=== PATIENT | female | born 1955 | race Caucasian/White ===

== ENCOUNTER → 2023-07-19 15:44 | Outpatient (REF) | payer BC, SELFPAY | LOC: WDC 15:44 | PROVIDERS: ATTENDING PHYSICIAN Physician Assistant Medical | DX: Z12.31 Encounter for screening mammogram for malignant neoplasm of breast (principal) | CPT/HCPCS: 77063; 77067 ==

== ENCOUNTER → 2023-08-10 07:59 | Outpatient (REF) | payer BC, SELFPAY | LOC: WDC 07:59 | PROVIDERS: ATTENDING PHYSICIAN Physician Assistant Medical | DX: R92.2 Inconclusive mammogram (principal) | CPT/HCPCS: 76641 ==

== ENCOUNTER 2024-02-10 13:45 | Emergency (ER) | payer BC, SELFPAY ==
--- NOTE | 2024-02-10 13:54 | ED.GENMED ---
ED Provider Triage
<LAZARO Manning - Last Filed: 02/10/24 14:03>
-
Patient seen by provider in Triage?: Seen in Triage
Attestation: A medical screening examination has been initiated by a qualified medical provider. Based on the assessment performed at this time, it has been determined that an emergent medical condition may exist and the patient has been informed
that further medical evaluation and possible additional diagnostic testing may be needed.
HPI:
68 yr old female present to the ED with c/o of left arm pain for past 6 wks. No injury, pain is constant . Denies any chest pain. denies any trauma/denies neck pain . Saw pcp 2 wks ago has script for MRI neck /lower back however pain has
increased. Pt reports her pcp also wanted her to come to the ED to rule out cardiac cause with left arm pain.
Pt has been taking Alleve without relief.
GENERAL: Alert , in no apparent distress
EYE: No visual abnormalities.
NECK: Trachea midline
ENT: No visible abnormalities.
LUNGS: No acute respiratory distress
NEUROLOGICAL: Alert and oriented
SKIN: Skin intact. No visible changes.
MUSCULOSKELETAL: Moving extremities normally
PSYCH: Normal and appropriate interaction.
This is a medical evaluation conducted in person to initiate diagnostic evaluation and provide initial therapeutics. Please see further documentation by the treating clinician.
History of Present Illness
<LAZARO Manning - Last Filed: 02/10/24 14:03>
General
Chief Complaint: Musculo-Skeletal Complaint
Time Seen by Provider: 02/10/24 14:59
<Esther Robert PA-C - Last Filed: 02/10/24 20:56>
General
Source: patient
History of Present Illness
History of Present Illness:
68yoF with a history of osteoporosis and Lyme disease in 2011 presenting with her for evaluation of multiple complaints. Patient reports left arm discomfort which has been constant for the past 6 weeks. The pain feels like she has a band
squeezing the arm. She also reports lower back pain which radiates down into the bilateral buttocks and posterior legs. She is also experiencing tingling in her bilateral hands and feet. She has had similar symptoms over the past several years
since having Lyme disease in 2011. The symptoms typically last several months before resolving. Patient was previously on daily low-dose naltrexone which was prescribed by her top printing press operator for the symptoms which she is no longer taking. Patient
was seen by her PCP earlier this month for the symptoms. She was told to go to the ED at that time for a cardiac evaluation but did not want to come initially. She was unable to sleep last night due to her pain so she decided to come to the ED
today for evaluation. She has an MRI of her cervical and lumbar spine scheduled for next month. She denies any fevers, weight loss, saddle anesthesia, incontinence, rashes.
Past History
<LAZARO Manning - Last Filed: 02/10/24 14:03>
Past History
ED Past Medical History: Hypothyroidism and Other (lyme)
ED Past Surgical History: None and Orthopedic
Social History
Tobacco: Non-smoker
Alcohol: Other
Personal:
Living: with family
Employment: Employed
Family History
Family History: Other
Phy Exam
<Esther Robert PA-C - Last Filed: 02/10/24 20:56>
General Physical Exam
General Presentation: well appearing and no apparent distress
General age: appears stated age
General Skin: warm and dry
General Habitus: normal
General Mental: alert
General Hydration: appears well hydrated
ENT Exam
ENT Exam: normocephalic
Cardiovascular Exam
Cardiovascular Exam: regular rate/rhythm, no murmur and normal peripheral pulses (2+ radial pulses bilaterally)
Pulmonary Exam
Pulmonary Exam: lungs clear, no respiratory distress, no rales, no crackles and no wheezing
S[place] Coma Scale
Eye Opening: Spontaneous
Verbal Response: Oriented
Motor Response: Obeys Commands
GCS Total Score: 15
Musculoskeletal Exam
Musculoskeletal Exam: other (+Tenderness in bilateral paraspinal lumbar region. No skin changes. )
Skin Exam
Skin Exam: normal color and warm/dry
Psychiatric Exam
Psychiatric Exam: normal mood/affect
Course
<LAZARO Manning - Last Filed: 02/10/24 14:03>
Orders/Labs/Results
Orders:
Orders
02/10/24 13:47
Electrocardiogram (*1) Urgent
Reason for Study: Other
Other Reason for Exam: arm pain
02/10/24 13:48
EKG- Treatment ONCE
02/10/24 14:06
Complete Blood Count/With Diff Urgent
Comprehensive Metabolic Panel Urgent
Troponin I Urgent
02/10/24 16:09
Lyme Progressive Urgent
Abnormal Lab Results
02/10/24
14:06
MCH 33.7 H pg
(27.0-31.0)
BUN 20 H mg/dl
(7-17)
Glucose 113 H mg/dl
(70-99)
AST 46 H U/L
(14-36)
ALT 43 H U/L
(0-35)
02/10/24 14:06
02/10/24 14:06
Vital Signs
Initial and Last Documented VS:
Initial Vital Signs
Temp Pulse Resp BP Pulse Ox
98.7 F 89 16 159/94 98
02/10/24 13:57 02/10/24 13:57 02/10/24 13:57 02/10/24 13:57 02/10/24 13:57
Last Documented Vital Signs
Temp Pulse Resp BP Pulse Ox
98.7 F 70 18 132/79 98
02/10/24 13:57 02/10/24 16:38 02/10/24 16:38 02/10/24 16:38 02/10/24 16:38
<Esther Robert PA-C - Last Filed: 02/10/24 20:56>
Orders/Labs/Results
Orders:
Orders
02/10/24 13:47
Electrocardiogram (*1) Urgent
Reason for Study: Other
Other Reason for Exam: arm pain
02/10/24 13:48
EKG- Treatment ONCE
02/10/24 14:06
Complete Blood Count/With Diff Urgent
Comprehensive Metabolic Panel Urgent
Troponin I Urgent
02/10/24 16:09
Lyme Progressive Urgent
Abnormal Lab Results
02/10/24
14:06
MCH 33.7 H pg
(27.0-31.0)
BUN 20 H mg/dl
(7-17)
Glucose 113 H mg/dl
(70-99)
AST 46 H U/L
(14-36)
ALT 43 H U/L
(0-35)
02/10/24 14:06
02/10/24 14:06
Vital Signs
Initial and Last Documented VS:
Initial Vital Signs
Temp Pulse Resp BP Pulse Ox
98.7 F 89 16 159/94 98
02/10/24 13:57 02/10/24 13:57 02/10/24 13:57 02/10/24 13:57 02/10/24 13:57
Last Documented Vital Signs
Temp Pulse Resp BP Pulse Ox
98.7 F 70 18 132/79 98
02/10/24 13:57 02/10/24 16:38 02/10/24 16:38 02/10/24 16:38 02/10/24 16:38
<Esther Robert PA-C - Last Filed: 02/10/24 20:56>
MDM/Problems Addressed
Differential Diagnosis Includes:
68yoF here with L arm pain x 6 weeks. Also having lower back pain radiating down posterior buttocks/legs x several weeks. Hx of similar symptoms in the past which were attributed to Lyme disease. Hx of Lyme disease in 2012. Has an MRI cervical and
lumbar spine scheduled for next month. No red flags in history including no fevers, saddle anesthesia, incontinence. VSS. She is well appearing in no distress. Exam is reassuring. Differential diagnosis includes but is not limited to: sciatica, DDD,
Lyme disease, doubt cardiac symptoms
Labs and EKG obtained in triage. Troponin WNL and EKG shows NSR without ischemic changes. Offered x-rays of lumbar spine while in the ED although overall low suspicion of fracture. Patient declines imaging at this time. She is requesting repeat Lyme
testing which was ordered. Will trial course of prednisone. She was advised to f/u with her PCP and top printing press operator. ED return precautions discussed. She was discharged in stable condition.
<Esther Robert PA-C - Last Filed: 02/10/24 20:56>
*Critical Care Note
Total Time (30-74mins, 75-104mins- exclusive of procedures): Not Applicable
ED Attending Note
<LAZARO Manning - Last Filed: 02/10/24 14:03>
-
Portions of this chart may have been created with voice recognition software.� Occasional wrong word or��sound alike� substitutions may have occurred due to the inherent limitations of voice recognition software.
Discharge Plan
Departure
Patient Disposition: Home (Routine Discharge)
Date of Disposition: 02/10/24
Time of Disposition: 15:56
Patient with high blood pressure during this ER visit?: Yes
Discharge Problem:
Left arm pain, Low back pain
Instructions: Back Pain
Prescriptions:
New
prednisone 50 mg tablet
50 mg PO DAILY Qty: 5 0RF
Referrals:
Chon Stearns, [Family Provider] -
Activity Restrictions/Additional Instructions:
Take Aleve twice a day as needed. Take prednisone as prescribed.
Please follow-up with your family doctor and top printing press operator. Return to the ER with any new or worsening symptoms.
Interventions
Interventions:
*Risk Screen - Suicide Last Done: 02/10/24 13:57
*General Assessment Last Done: 02/10/24 16:37
*Neglect/Abuse Screening Last Done: 02/10/24 13:57
*ED COVID-19 Vaccine History Last Done: 02/10/24 16:37
*Nursing Disposition Last Done: 02/10/24 16:38
ED-Musculoskeletal Assessment Last Done: 02/10/24 14:57
Discharge Date and Time
Discharge Date/Time: 02/10/24 16:39
Print Language: ANGOLAN
[2024-02-10 13:57] VITALS: BP 159/94
[2024-02-10 14:21] LABS: % Basophils 0.5 % (0-2); % Eosinophils 0.9 % (0-6); % Neutrophils 62.6 % (42.2-75.2); Absolute Eosinophils 0.1 10^3/uL (0-0.7); Absolute Lymphocytes 1.7 10^3/uL (1.2-3.4); Absolute Monocytes 0.4 10^3/uL (0.1-0.6); Absolute Neutrophils 3.6 10^3/uL (1.4-6.5); Hematocrit 40.1 % (37.0-47.0); Hemoglobin 14.5 g/dL (12.0-16.0); Mean Corp Hgb Conc. 36.2 g/dL (33.0-37.0); Mean Corpuscular Hgb 33.7 pg (27.0-31.0); Mean Corpuscular Volume 93.3 fL (81.0-99.0); Mean Platelet Volume 9.1 fL (7.4-10.4); Nucleated Red Blood Cells % 0 %; Platelet Count 253 10^3/uL (130-400); Red Cell Dist. Width 13.3 % (11.5-14.5); White Blood Cell Count 5.7 10^3/uL (4.8-10.8)
[2024-02-10 14:43] LABS: ALT (SGPT) 43 U/L (0-35); AST (SGOT) 46 U/L (14-36); Albumin 4.9 g/dl (3.5-5.0); Alkaline Phosphatase 44 U/L (38-126); Blood Urea Nitrogen 20 mg/dl (7-17); Calcium 10.1 mg/dl (8.4-10.2); Carbon Dioxide 28 mmol/L (22-30); Chloride 103 mmol/L (98-107); Glucose 113 mg/dl (70-99); Potassium 4.7 mmol/L (3.5-5.1); Sodium 141 mmol/L (135-145); Total Bilirubin 0.7 mg/dl (0.2-1.3); Total Protein 7.2 g/dl (6.3-8.2); eGFR > 60.00
[2024-02-10 14:52] LABS: Troponin I < 0.012 ng/ml
[2024-02-10 16:38] VITALS: BP 132/79
[2024-02-11 16:34] LABS: Lyme Antibody Screen, EIA Negative (Negative)
== END 2024-02-10 16:39 | disposition home or self-care (01) ==
LOC: EMR 13:45
PROVIDERS: Nurse Practitioner; Physician Assistant; EMERGENCY PHYSICIAN Emergency Medicine; FAMILY PHYSICIAN Student in an Organized Health Care Education/Training Program
DX: M79.602 Pain in left arm (principal); M54.50 Low back pain, unspecified; R20.2 Paresthesia of skin; M81.0 Age-related osteoporosis without current pathological fracture
CPT/HCPCS: 99284; 80053; 84484; 85025; 86618; 93005

== ENCOUNTER → 2024-02-28 17:51 | Outpatient (REF) | payer BC, SELFPAY | LOC: MRI 17:51 | PROVIDERS: ATTENDING PHYSICIAN Student in an Organized Health Care Education/Training Program | DX: Z86.19 Personal history of other infectious and parasitic diseases (principal); M79.602 Pain in left arm | CPT/HCPCS: 72141; 72148 ==

== ENCOUNTER → 2024-07-19 13:59 | Outpatient (REF) | payer BC, SELFPAY | LOC: WDC 13:59 | PROVIDERS: ATTENDING PHYSICIAN Student in an Organized Health Care Education/Training Program; FAMILY PHYSICIAN Physician Assistant Medical | DX: M81.0 Age-related osteoporosis without current pathological fracture (principal); Z12.31 Encounter for screening mammogram for malignant neoplasm of breast | CPT/HCPCS: 77063; 77067; 77080 ==

== ENCOUNTER → 2024-08-24 12:54 | Outpatient (REF) | payer BC, SELFPAY | LOC: WDC 12:54 | PROVIDERS: ATTENDING PHYSICIAN Student in an Organized Health Care Education/Training Program | DX: R92.2 Inconclusive mammogram (principal) | CPT/HCPCS: 76641 ==